=== PATIENT | male | born 1960 | race American Indian/Alaskan Native ===

== ENCOUNTER 2020-10-28 06:29 | Emergency (ER) | payer OTHER ==
[2020-10-28 06:37] VITALS: BP 134/92
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
[2020-10-28] MEDS ORDERED: BUTALB/ACETAMINOPHEN/CAFFEINE TAB PO STA (09:24)
[2020-10-28] MEDS ORDERED: IBUPROFEN 800 MG TAB PO STA (09:25)
== END 2020-10-28 10:06 | disposition home or self-care (01) ==
LOC: ED 06:29
DX: M54.5 Low back pain (principal); M54.2 Cervicalgia; I10 Essential (primary) hypertension; Z88.8 Allergy status to other drugs, medicaments and biological substances; Z98.890 Other specified postprocedural states; Z79.899 Other long term (current) drug therapy; V49.49XA Driver injured in collision with other motor vehicles in traffic accident, initial encounter; Y92.410 Unspecified street and highway as the place of occurrence of the external cause; Y93.89 Activity, other specified; Y99.8 Other external cause status
CPT/HCPCS: 72040